=== PATIENT | female | born 2000 | race Caucasian/White ===

== ENCOUNTER 2021-07-17 11:57 | Emergency (ER) | payer BC, SELFPAY ==
[~2021-07-17] VITALS: Ht 172.7 cm; Wt 56.7 kg
--- NOTE | 2021-07-17 12:15 | NUR ---
Pt to bed 2 for evaluation.
[2021-07-17 12:20] VITALS: BP_SYST 125
--- NOTE | 2021-07-17 12:20 | NUR ---
Pt is AAO and ambulatory reporting fever X 9 days. Pt was treated by PMD and was given Eleanor-flu 4 days ago. On the 10 of July, pt tested positive for influenza A. [place] came [place] with symptoms. Pt reports pain 4/10 currently and denies any prior medical issue.
--- NOTE | 2021-07-17 12:32 | NUR ---
DR Bettencourt to bedside to assess patient
--- NOTE | 2021-07-17 12:40 | NUR ---
PCR swab collected at bedside and sent to lab
--- NOTE | 2021-07-17 13:13 | NUR ---
CXR being done at bedside
[2021-07-17 13:20] LABS: BASOPHILS % (AUTO) 0.7 % (0.0-2.0); EOSINOPHILS % (AUTO) 0.9 % (0.0-4.0); HEMATOCRIT 36.8 % (36-48); HEMOGLOBIN 12.7 g/dL (12.0-16.0); LYMPHOCYTES # (AUTO) 1.3 K/uL (1.0-5.5); LYMPHOCYTES % (AUTO) 24.2 % (20.5-51.5); MEAN CORPUSCULAR HEMOGLOBIN 29 pg (27-31); MEAN CORPUSCULAR HGB CONC 34 % (32-36); MEAN CORPUSCULAR VOLUME 84 fL (79.0-98.0); MONOCYTES # (AUTO) 0.3 K/uL (0.0-1.0); MONOCYTES % (AUTO) 6.3 % (1.7-9.3); NEUTROPHILS # (AUTO) 3.8 K/uL (1.8-7.7); NEUTROPHILS % (AUTO) 67.9 % (40.0-70.0); PLATELET COUNT (AUTO) 310 K/uL (130-430); RED CELL DISTRIBUTION WIDTH 12.8 % (9.0-15.0); WHITE BLOOD COUNT (AUTO) 5.5 K/uL (4.5-11.0)
[2021-07-17 13:41] LABS: CALCIUM 8.6 mg/dL (8.4-11.0); CREATININE 0.89 mg/dL (0.55-1.30); POTASSIUM 4.1 mmol/L (3.5-5.1)
[2021-07-17 14:40] LABS: ALBUMIN 2.6 g/dL (3.4-4.8); BILIRUBIN,DIRECT 0.2 mg/dL (0.0-0.3); TOTAL BILIRUBIN 0.5 mg/dL (0.0-1.0)
[2021-07-17 14:58] VITALS: BP_SYST 125
--- NOTE | 2021-07-17 14:59 | NUR ---
Patient given written and verbal discharge instructions and verbalizes understanding. ER MD discussed with patient the results and treatment provided. Patient in stable condition. ID arm band removed. Patient educated on pain management and to follow up with PMD. Pain scale 0/10. Opportunity for questions provided and answered.
== END 2021-07-17 14:59 | disposition home or self-care (01) ==
LOC: SED 11:57
DX: U07.1 COVID-19 (principal); J11.1 Influenza due to unidentified influenza virus with other respiratory manifestations
CPT/HCPCS: 36415; 71045; 80048; 80076; 81002; 85025; 99284; U0003; C9803